=== PATIENT | male | born 1960 | race Caucasian/White ===

== ENCOUNTER → 2018-09-10 | Outpatient (CLI) | payer BC | END | disposition home or self-care (01) | LOC: RAH 10:48 | PROVIDERS: ATTEND Internal Medicine | DX: M48.07 Spinal stenosis, lumbosacral region (principal); M51.36 Other intervertebral disc degeneration, lumbar region; M47.816 Spondylosis without myelopathy or radiculopathy, lumbar region; R60.0 Localized edema; M45.0 Ankylosing spondylitis of multiple sites in spine | CPT/HCPCS: 72148 ==

== ENCOUNTER → 2018-09-28 | Outpatient (CLI) | payer BC | END | disposition home or self-care (01) | LOC: RAH 12:32 | PROVIDERS: ATTEND Internal Medicine | DX: M54.5 Low back pain (principal) | CPT/HCPCS: 78306; A9503 ==

== ENCOUNTER → 2018-10-31 | Outpatient (CLI) | payer BC | END | disposition home or self-care (01) | LOC: RAH 09:10 | DX: S32.059A Unspecified fracture of fifth lumbar vertebra, initial encounter for closed fracture (principal); M48.061 Spinal stenosis, lumbar region without neurogenic claudication; M45.6 Ankylosing spondylitis lumbar region; M47.815 Spondylosis without myelopathy or radiculopathy, thoracolumbar region; K44.9 Diaphragmatic hernia without obstruction or gangrene; I70.90 Unspecified atherosclerosis; X58.XXXA Exposure to other specified factors, initial encounter; Y93.89 Activity, other specified; Y92.89 Other specified places as the place of occurrence of the external cause; Y99.8 Other external cause status | CPT/HCPCS: 71250; 74176 ==

== ENCOUNTER 2020-06-06 22:10 | Emergency (ER) | payer BC ==
[2020-06-06 22:48] LABS: BASOPHILS % (AUTO) 0.2 % (0.0-5.0); EOSINOPHILS % (AUTO) 1.3 % (0.0-8.0); HEMATOCRIT 37.7 % (42-54); LYMPHOCYTES % (AUTO) 21.1 % (21.0-51.0); MEAN CORPUSCULAR HEMOGLOBIN 29.4 pg (27.0-33.0); MEAN CORPUSCULAR HGB CONC 32.9 g/dL (32.0-36.0); MEAN CORPUSCULAR VOLUME 89.3 fL (79-99); MONOCYTES % (AUTO) 9.1 % (3.0-13.0); NEUTROPHILS % (AUTO) 67.9 % (40.0-77.0); PLATELET COUNT (AUTO) 342 K/uL (130-400); RED BLOOD CELL COUNT(AUTO) 4.22 MIL/uL (4.50-6.20); RED CELL DISTRIBUTION WIDTH 12.7 % (11.0-15.5); WHITE BLOOD COUNT (AUTO) 13.6 K/uL (4.8-10.8)
[2020-06-06 22:54] LABS: CREATININE 0.7 mg/dL (0.5-1.5); POTASSIUM 4.5 mmol/L (3.5-5.1)
[2020-06-06 22:58] LABS: BILIRUBIN,TOTAL 0.3 mg/dL (0.2-1.0); TOTAL PROTEIN, SERUM 7.1 g/dL (6.0-8.3)
[2020-06-06] MEDS ORDERED: LACTULOSE 20 GM/30 ML UDCUP ONE (23:49)
[2020-06-07 00:10] LABS: APPEARANCE,URINE Clear (CLEAR); BILIRUBIN,URINE Negative (NEGATIVE); COLOR,URINE Yellow (YELLOW); GLUCOSE, URINE (UA) Negative (NEGATIVE); KETONES,URINE Negative (NEGATIVE); LEUKOCYTE ESTERASE ,URINE Negative (NEGATIVE); NITRATE,URINE Negative (NEGATIVE); OCCULT BLOOD,URINE Negative (NEGATIVE); PROTEIN,URINE Negative (NEGATIVE)
[2020-06-07 01:05] LABS: BACTERIA,URINE None Seen /HPF (None Seen); RBC,URINE 0-1 /HPF (0-1); WBC,URINE 0-1 /HPF (0-1)
== END 2020-06-07 00:07 | disposition home or self-care (01) ==
LOC: EDH 22:10
DX: K59.00 Constipation, unspecified (principal); E11.9 Type 2 diabetes mellitus without complications; I10 Essential (primary) hypertension; F11.10 Opioid abuse, uncomplicated
CPT/HCPCS: 36415; 74176; 80053; 81001; 82550; 83690; 84484; 85025; 93005

== ENCOUNTER → 2020-11-03 | Outpatient (CLI) | payer OTHER, BC | END | disposition home or self-care (01) | LOC: OIH 14:44 | PROVIDERS: ATTEND Internal Medicine | DX: M19.031 Primary osteoarthritis, right wrist (principal); M19.032 Primary osteoarthritis, left wrist; M19.042 Primary osteoarthritis, left hand; M19.041 Primary osteoarthritis, right hand; M06.4 Inflammatory polyarthropathy; M19.072 Primary osteoarthritis, left ankle and foot; M19.071 Primary osteoarthritis, right ankle and foot | CPT/HCPCS: 73100; 73630 ==

== ENCOUNTER → 2020-12-10 | Outpatient (CLI) | payer OTHER, BC | END | disposition home or self-care (01) | LOC: OIH 12-09 14:20 | PROVIDERS: ATTEND Pain Medicine Interventional Pain Medicine | DX: M51.16 Intervertebral disc disorders with radiculopathy, lumbar region (principal); M43.8X6 Other specified deforming dorsopathies, lumbar region | CPT/HCPCS: 72100 ==

== ENCOUNTER 2020-12-15 09:45 | Day surgery (SDC) | payer OTHER, MEDICARE ==
[2020-12-15] VITALS (11 sets, daily range): BP systolic 101–128; BP diastolic 58–80
[~2020-12-15] VITALS: Ht 160 cm; Wt 122.5 kg
[2020-12-15] MEDS ORDERED: SODIUM CHLORIDE 0.9% 1000ML 1,000 ML IV ONE (11:37)
[2020-12-15] MEDS ORDERED: PROPOFOL 10 MG/ML 20ML VIAL IV ONE ×2 (12:31)
[2020-12-15] MEDS ORDERED: FENTANYL CITRATE PF 50 MCG/1 ML 2ML VIAL ONE (12:31)
== END 2020-12-15 14:00 | disposition home or self-care (01) ==
LOC: ENDO 09:45
PROVIDERS: ATTEND Internal Medicine Gastroenterology
DX: Z12.11 Encounter for screening for malignant neoplasm of colon (principal); K64.1 Second degree hemorrhoids; K57.30 Diverticulosis of large intestine without perforation or abscess without bleeding; I10 Essential (primary) hypertension; E78.5 Hyperlipidemia, unspecified; I25.10 Atherosclerotic heart disease of native coronary artery without angina pectoris; E11.40 Type 2 diabetes mellitus with diabetic neuropathy, unspecified; Z86.010 Personal history of colon polyps; Z79.899 Other long term (current) drug therapy
CPT/HCPCS: 82948; 87426; A4215; A4221; A4222; A4223; A4606; A4620; A4663; G0105; J2704 ×2; J3010; J7030; 45378

== ENCOUNTER 2021-01-22 07:16 | Inpatient (IN) | payer OTHER, MEDICARE ==
[2021-01-15 16:48] LABS: BASOPHILS % (AUTO) 0.3 % (0.0-5.0); EOSINOPHILS % (AUTO) 0.9 % (0.0-8.0); HEMATOCRIT 46.1 % (42-54); LYMPHOCYTES % (AUTO) 26.5 % (21.0-51.0); MEAN CORPUSCULAR HEMOGLOBIN 30.1 pg (27.0-33.0); MEAN CORPUSCULAR VOLUME 91.3 fL (79-99); MONOCYTES % (AUTO) 10.8 % (3.0-13.0); NEUTROPHILS % (AUTO) 61.2 % (40.0-77.0); PLATELET COUNT (AUTO) 221 K/uL (130-400); RED BLOOD CELL COUNT(AUTO) 5.05 MIL/uL (4.50-6.20); RED CELL DISTRIBUTION WIDTH 14.6 % (11.0-15.5); WHITE BLOOD COUNT (AUTO) 8.7 K/uL (4.8-10.8)
[2021-01-15 17:02] LABS: INR 1.08 (0.85-1.15); PROTHROMBIN TIME 11.7 SEC (9.6-11.6)
[2021-01-15 17:03] LABS: PARTIAL THROMBOPLASTIN TIME 25.9 SEC (26.3-35.5)
[2021-01-15 17:07] LABS: ALBUMIN 3.7 g/dL (3.5-5.0); BILIRUBIN,TOTAL 0.6 mg/dL (0.2-1.0); CREATININE 0.8 mg/dL (0.5-1.5); POTASSIUM 4.4 mmol/L (3.5-5.1); TOTAL PROTEIN, SERUM 7.5 g/dL (6.0-8.3)
[2021-01-21 13:11] VITALS: BP 126/72
[~2021-01-22] VITALS: Ht 160 cm; Wt 124.4 kg
[2021-01-22] VITALS (22 sets, daily range): BP systolic 101–125; BP diastolic 54–84
[~2021-01-22 07:16] MED LIST: AMLO-258 PO; ATEN100T PO; ATOR10 PO; CHLO500T3 PO; GABA600T10 PO; HYDR-4381 PO; HYDR12.54 PO; LOSA25TA41 PO; MELO-108 PO; METF-444 PO; METF-446 PO
[2021-01-22] MEDS ORDERED: LACTATED RINGERS 1000ML 1,000 ML IV ONE (08:46)
[2021-01-22] MEDS: CEFAZOLIN SODIUM 1 GM VIAL IVP SCH ×3 (09:45→18:58)
[2021-01-22] MEDS ORDERED: CEFAZOLIN SODIUM 1 GM VIAL ONE (10:05)
[2021-01-22] MEDS ORDERED: VANCOMYCIN HCL 1 GM VIAL ONE (10:05)
[2021-01-22] MEDS ORDERED: THROMBIN-JMI 20000 UNIT KIT TP ONE (10:06)
[2021-01-22] MEDS ORDERED: TRIAMCINOLONE ACETONIDE 40 MG/ML 1ML VIAL ONE (10:06)
[2021-01-22] MEDS ORDERED: TRANEXAMIC ACID 1000MG/10ML ONE (10:06)
[2021-01-22] MEDS ORDERED: KETOROLAC TROMETHAMINE 60 MG/2 ML VIAL ONE (10:08)
[2021-01-22] MEDS ORDERED: HYDROMORPHONE 1 MG/1 ML AMP ONE (10:09)
[2021-01-22] MEDS ORDERED: TOBRAMYCIN SULFATE 40MG/1ML VIAL ONE (10:10)
[2021-01-22] MEDS ORDERED: SUCCINYLCHOLINE CHLORIDE 20 MG/ML 10 ML VIAL ONE (10:22)
[2021-01-22] MEDS ORDERED: LIDOCAINE HCL-MPF 1% 5ML AMP IJ ONE (10:22)
[2021-01-22] MEDS ORDERED: MIDAZOLAM HCL 1 MG/ML 2ML VIAL ONE (10:23)
[2021-01-22] MEDS ORDERED: FENTANYL CITRATE PF 50 MCG/1 ML 2ML VIAL ONE (10:23)
[2021-01-22] MEDS ORDERED: ROCURONIUM 10MG/1ML SYR 10 MG/ML ML ONE ×2 (10:23→11:18)
[2021-01-22] MEDS ORDERED: PROPOFOL 10 MG/ML 20ML VIAL IV ONE (10:23)
[2021-01-22] MEDS ORDERED: FENTANYL CITRATE PF 50 MCG/1 ML 5ML AMP IV ONE (10:53)
[2021-01-22] MEDS ORDERED: ROPIVACAINE 0.2% 2MG/ML 100ML VIAL IJ ONE (12:10)
[2021-01-22] MEDS ORDERED: GLYCOPYRROLATE 1 MG/5 ML SYRINGE ONE (12:55)
[2021-01-22] MEDS ORDERED: NEOSTIGMINE 5MG/5ML SYR IV ONE (12:55)
[2021-01-22] MEDS ORDERED: KETOROLAC TROMETHAMINE 30MG/ML ONE (13:01)
[2021-01-22] MEDS ORDERED: MORPHINE SULFATE 2 MG/ML 1ML SYG ONE (13:30)
[2021-01-22] MEDS ORDERED: MEPERIDINE-PF 25 MG/ML SYG ONE ×2 (13:51→18:09)
[2021-01-22] MEDS ORDERED: DEXTROSE 50%-WATER 50 ML DISP.SYRIN IV PRN (16:30)
[2021-01-22] MEDS ORDERED: GLUCAGON 1MG KIT 1 MG ML IM PRN (16:30)
[2021-01-22] MEDS: INSULIN HUMULIN R 100 UNIT/ML 3ML SQ SCH ×2 (16:30→20:51)
[2021-01-22] MEDS ORDERED: ONDANSETRON HCL 4 MG/2 ML VIAL IVP PRN (17:30)
[2021-01-22] MEDS ORDERED: ACETAMINOPHEN-CODEINE 300/30MG TAB PO PRN ×2 (18:00)
[2021-01-22] MEDS ORDERED: MEPERIDINE-PF 50 MG/ML SYG ONE (18:07)
[2021-01-22] MEDS: METFORMIN HCL 500 MG TABLET PO SCH (20:45)
[2021-01-22] MEDS: ATENOLOL 50 MG TABLET PO SCH (20:45)
[2021-01-22] MEDS: GABAPENTIN 300 MG CAPSULE PO SCH (20:45)
[2021-01-22] MEDS: ATORVASTATIN CALCIUM 20 MG TABLET PO SCH (20:45)
[2021-01-22] MEDS: CHLORZOXAZONE 500 MG PO SCH (20:46)
[2021-01-22] MEDS: HYDROCODONE/ACETAMINOPHEN 10/325 MG TAB PO PRN (20:46)
[2021-01-23] MEDS: HYDROCODONE/ACETAMINOPHEN 10/325 MG TAB PO PRN ×2 (01:20→08:39)
[2021-01-23] MEDS ORDERED: MEPERIDINE-PF 25 MG/ML SYG ONE (03:19)
[2021-01-23] MEDS ORDERED: MEPERIDINE-PF 50 MG/ML SYG ONE (03:19)
[2021-01-23] MEDS: CEFAZOLIN SODIUM 1 GM VIAL IVP SCH ×2 (03:26→12:48)
[2021-01-23] MEDS: MEPERIDINE-PF 75 MG/ML SYG IM PRN ×3 (03:27→20:45)
[2021-01-23 04:00] VITALS: BP 118/74
[2021-01-23] MEDS: INSULIN HUMULIN R 100 UNIT/ML 3ML SQ SCH ×4 (06:10→20:45)
[2021-01-23 08:33] VITALS: BP 127/73
[2021-01-23] MEDS: LOSARTAN 25 MG TABLET PO SCH (08:39)
[2021-01-23] MEDS: HYDROCHLOROTHIAZIDE 25 MG TABLET PO SCH (08:39)
[2021-01-23] MEDS: AMLODIPINE BESYLATE 5 MG TAB PO SCH (08:39)
[2021-01-23] MEDS: ATENOLOL 50 MG TABLET PO SCH ×2 (08:39→20:35)
[2021-01-23] MEDS: METFORMIN HCL 500 MG TABLET PO SCH ×2 (08:40→20:34)
[2021-01-23] MEDS: GABAPENTIN 300 MG CAPSULE PO SCH ×2 (08:40→20:34)
[2021-01-23] MEDS: MELOXICAM 7.5 MG TABLET PO SCH (09:00)
[2021-01-23] MEDS: CHLORZOXAZONE 500 MG PO SCH ×2 (09:00→20:46)
[2021-01-23 12:24] VITALS: BP 105/57
[2021-01-23 16:35] VITALS: BP 98/67
[2021-01-23 20:20] VITALS: BP 112/60
[2021-01-23] MEDS: ATORVASTATIN CALCIUM 20 MG TABLET PO SCH (20:34)
[2021-01-24 00:18] VITALS: BP 118/74
[2021-01-24] MEDS: HYDROCODONE/ACETAMINOPHEN 10/325 MG TAB PO PRN (03:54)
[2021-01-24 04:17] VITALS: BP 137/74
[2021-01-24] MEDS: INSULIN HUMULIN R 100 UNIT/ML 3ML SQ SCH ×3 (06:49→16:30)
[2021-01-24] MEDS: MELOXICAM 7.5 MG TABLET PO SCH (07:56)
[2021-01-24] MEDS: LOSARTAN 25 MG TABLET PO SCH (07:57)
[2021-01-24] MEDS: GABAPENTIN 300 MG CAPSULE PO SCH (07:57)
[2021-01-24] MEDS: METFORMIN HCL 500 MG TABLET PO SCH (07:57)
[2021-01-24] MEDS: HYDROCHLOROTHIAZIDE 25 MG TABLET PO SCH (07:57)
[2021-01-24] MEDS: ATENOLOL 50 MG TABLET PO SCH (07:58)
[2021-01-24] MEDS: AMLODIPINE BESYLATE 5 MG TAB PO SCH (07:58)
[2021-01-24] MEDS: MEPERIDINE-PF 75 MG/ML SYG IM PRN ×2 (07:59→16:56)
[2021-01-24] MEDS: CHLORZOXAZONE 500 MG PO SCH (07:59)
[2021-01-24 08:29] VITALS: BP 118/88
[2021-01-24 12:17] VITALS: BP 105/61
[2021-01-24 16:56] VITALS: BP 112/66
== END 2021-01-24 18:37 | disposition home or self-care (01) | DRG 517 ==
LOC: DAH 07:16 → 4DH 07:17 → DAH 07:17 → EDSTATUS 16:00 → 4BH 21:19
PROVIDERS: ADMIT Neurological Surgery; ATTEND Neurological Surgery
PROC: 01NB0ZZ Release Lumbar Nerve, Open Approach (ICD-10-PCS; principal; 2021-01-23)
PROC: 01NR0ZZ Release Sacral Nerve, Open Approach (ICD-10-PCS; 2021-01-23)
DX: M48.062 Spinal stenosis, lumbar region with neurogenic claudication (principal); M54.10 Radiculopathy, site unspecified; Z20.822 Contact with and (suspected) exposure to COVID-19
CPT/HCPCS: 36415; 71046; 72100; 80053; 82948; 85025; 85610; 85730; 93005; C9803; G0378; J0330; J0690; J1170; J1815; J1885; J2175; J2250; J2704; J2710; J2795; J3010; J3260; J3301; J3370; J3490; J7030; J7120; U0003

== ENCOUNTER 2023-04-15 21:27 | Emergency (ER) | payer OTHER, MEDICARE ==
[~2023-04-15] VITALS: Ht 160 cm; Wt 102.1 kg
[2023-04-15 22:29] LABS: BASOPHILS # (AUTO) 0.04 K/uL (0.00-0.20); BASOPHILS % (AUTO) 0.4 % (0.0-5.0); EOSINOPHILS # (AUTO) 0.07 K/uL (0.00-0.70); EOSINOPHILS % (AUTO) 0.6 % (0.0-8.0); HEMATOCRIT 54.8 % (42-54); IMMATURE GRANULOCYTE ABSOLUTE 0.04 K/uL (0-1); LYMPHOCYTES # (AUTO) 2.5 K/uL (1.0-4.8); LYMPHOCYTES % (AUTO) 22.7 % (21.0-51.0); MEAN CORPUSCULAR HEMOGLOBIN 32.9 pg (27.0-33.0); MEAN CORPUSCULAR HGB CONC 34.7 g/dL (32.0-36.0); MONOCYTES # (AUTO) 1.2 K/uL (0.1-1.0); MONOCYTES % (AUTO) 11.4 % (3.0-13.0); NEUTROPHILS % (AUTO) 64.5 % (40.0-77.0); PLATELET COUNT (AUTO) 232 K/uL (130-400); RED BLOOD CELL COUNT(AUTO) 5.77 MIL/uL (4.50-6.20); RED CELL DISTRIBUTION WIDTH 12.6 % (11.0-15.5); WHITE BLOOD COUNT (AUTO) 10.9 K/uL (4.8-10.8)
[2023-04-15 22:40] LABS: CREATININE 0.9 mg/dL (0.5-1.5); POTASSIUM 4.1 mmol/L (3.5-5.1)
[2023-04-15 22:45] LABS: ALBUMIN 3.6 g/dL (3.5-5.0); BILIRUBIN,TOTAL 0.9 mg/dL (0.2-1.0); TOTAL PROTEIN, SERUM 6.9 g/dL (6.0-8.3)
[2023-04-15 23:38] LABS: RAPID GROUP A STREP negative (NEGATIVE)
[2023-04-15 23:44] LABS: SARS-CoV-2, RNA, NAAT NEGATIVE SARS CoV-2 (NEGATIVE)
[2023-04-15 23:48] LABS: INFLUENZA TYPE A Negative For Type A (NEGATIVE); INFLUENZA TYPE B Negative For Type B (NEGATIVE)
[2023-04-15 23:51] VITALS: BP 134/83; PULSE 89; RESP 16; O2SAT 97
== END 2023-04-15 23:56 | disposition home or self-care (01) ==
LOC: EDH 21:27
DX: I48.91 Unspecified atrial fibrillation (principal); M19.90 Unspecified osteoarthritis, unspecified site; Z20.822 Contact with and (suspected) exposure to COVID-19
CPT/HCPCS: 99284; 87635; 84484; 80053; 85025; 87880; 87804 ×2; 36415; 93005; C9803

== ENCOUNTER 2025-06-01 12:23 | Emergency (ER) | payer OTHER, MEDICARE ==
[~2025-06-01] VITALS: Ht 160 cm; Wt 99.8 kg
[~2025-06-01 12:23] MED LIST changes: +GABA-1405 PO; -GABA600T10 PO
[2025-06-01 12:54] LABS: IMMATURE GRANULOCYTE ABSOLUTE 0.06 K/uL (0-1); NUCLEATED RED BLOOD CELLS 0.0 % (0.0-0.19); PLATELET COUNT (AUTO) 284 K/uL (130-400); RED BLOOD CELL COUNT(AUTO) 5.50 MIL/uL (4.50-6.20); RED CELL DISTRIBUTION WIDTH 14.5 % (11.0-15.5); WHITE BLOOD COUNT (AUTO) 9.7 K/uL (4.8-10.8)
[2025-06-01 13:02] LABS: APPEARANCE,URINE CLEAR (CLEAR); GLUCOSE, URINE (UA) NEGATIVE (NEGATIVE); LEUKOCYTE ESTERASE ,URINE NEGATIVE Leu/uL (NEGATIVE); NITRATE,URINE NEGATIVE (NEGATIVE); OCCULT BLOOD,URINE NEGATIVE (NEGATIVE)
[2025-06-01 13:04] LABS: CREATININE 0.7 mg/dL (0.5-1.3); GLOMERULAR FILTR. RATE CALC 104.0 mL/min (>90); GLUCOSE,RANDOM 104.0 mg/dL (70-105); SODIUM SERUM 138.0 mmol/L (136-145); UREA NITROGEN, BLOOD 12.0 mg/dL (7-18)
[2025-06-01 13:07] LABS: ADD UA MICROSCOPIC YES
[2025-06-01 13:08] LABS: SQUAMOUS EPITHELIAL CELL,UR RARE /HPF (0-2)
--- NOTE | 2025-06-01 13:45 | ERN ---
General Chief Complaint: Abscess Stated Complaint: ABSCESS Time Seen by MD: 12:29 Source: patient History of Present Illness Initial Comments Patient is a 65-year-old male coming in complaining left lower extremity abscess. Per patient he has had this for three days he believes it is getting worse. He has had no fever no chills no nausea no vomiting. Allergies: Coded Allergies: No Known Drug Allergies (Verified Allergy, Unknown, 01/21/21) Home Meds Reported Medications Metformin HCl (Metformin HCl) 500 Mg Tablet, 500 MG PO HS, TAB 01/21/21 Metformin HCl (Metformin HCl) 1,000 Mg Tablet, 1000 MG PO DAILY, TAB 01/21/21 Atorvastatin Calcium (LIPITOR) 20 Mg Tab, 20 MG PO HS, TAB 01/21/21 Gabapentin (Gabapentin) 600 Mg Tablet, 600 MG PO BID, TAB 01/21/21 Chlorzoxazone (Chlorzoxazone) 500 Mg Tablet, 500 MG PO BID, TAB 01/21/21 Hydrocodone/Acetaminophen (Hydrocodone-Acetamin 10-300 mg) 1 Each Tablet, 1 EACH PO BID PRN for PAIN LEVEL 5 TO 10, TAB 01/21/21 Atenolol (Atenolol) 100 Mg Tablet, 100 MG PO BID, TAB 01/21/21 Losartan Potassium (Losartan Potassium) 25 Mg Tablet, 25 MG PO DAILY, TAB 01/21/21 Amlodipine Besylate (Amlodipine Besylate) 10 Mg Tablet, 10 MG PO DAILY, TAB 01/21/21 Hydrochlorothiazide (Hydrochlorothiazide) 12.5 Mg Tablet, 12.5 MG PO DAILY, TAB 01/21/21 Meloxicam (Meloxicam) 15 Mg Tablet, 15 MG PO DAILY, TAB 01/21/21 Past Medical History Past Medical History: A-Fib, Arthritis, Other Medical History Other: ANKYLOSING SPONDYLITIS Past Surgical History: None ROS Dictation CONSTITUTIONAL: No chills, no fever, no weakness, no diaphoresis, no malaise. HEAD/FACE: No signs of trauma. EENT: No eye pain, no blurred vision, no tearing, no double vision, no ear pain, no ear discharge, no nose pain, no nasal congestion, no throat pain, no throat swelling, no mouth pain. RESPIRATORY: No cough, no orthopnea, no SOB, no stridor, no wheezing. CARDIOVASCULAR: No chest pain, no edema, no palpitations, no syncope. GASTROINTESTINAL/ABDOMINAL: No abdominal pain, no constipation, no diarrhea, no nausea, no vomiting. GENITOURINARY: No abnormal discharge, no dysuria, no frequent urination, no hematuria. No complaints of pain in the genitals. MUSCULOSKELETAL: No back pain, no gout, no joint pain, no joint swelling, no muscle pain, no muscle stiffness, no neck pain. INTEGUMENTARY: No change in color, no change in hair/nails, no dryness, lesion, no lumps, no rash. NEUROLOGICAL/PSYCH: No anxiety, not depressed, no emotional problem, no headache, no numbness, no pre-existing deficit, no history of seizures, no tremors, no weakness. HEMATOLOGIC/LYMPHATIC: Not anemic, no history of blood clots, no apparent bleeding, no bruising, glands not swollen. All Systems Negative, Except as Noted. Physical Exam Physical Exam Dictation VITAL SIGNS: Reviewed. GENERAL APPEARANCE: Alert, oriented x3, no acute distress, obese. HEAD AND FACE: Non-traumatic. EYES: PERRL, pink conjunctivas, eyelid no trauma, anterior chamber clear. EARS: Pinnas intact and no signs of trauma or erythema. Ear canals clear and no discharge. TMs no erythema. NOSE: No discharge, no bleeding. OROPHARYNX: Mouth normal, teeth no caries, tongue pink. Pharynx clear, no erythema. Tonsils no exudates, no abscesses noted. Mucous membrane moist. NECK: Supple, non-tender, no thyromegaly, no masses, no JVD, no bruits. BREAST: Deferred. CHEST: No tenderness, no crepitus, no paradoxical movement, no retractions. LUNGS: Clear, well-ventilated, symmetric, no rales, no wheezing, no rhonchi, no stridor, good breath sounds bilaterally. HEART: Regular rate, regular rhythm, no murmur, no gallops. VASCULAR: No peripheral edema. ABDOMEN: Soft, positive bowel sounds, nondistended, no guarding, nontender, no rebound, no masses no hepatomegaly, no splenomegaly, no Epsinoza's sign, no hernias. RECTAL: Deferred. GENITAL: Deferred. NEUROLOGICAL: Normal speech, gross motor function intact, gross sensory function intact. MUSCULOSKELETAL: Neck nontender, full range of motion, back nontender, full range of motion. EXTREMITIES: Nontender, full range of motion. Lower left rash/lesion/abscess SKIN: Color pink, dry, no turgor, no rash, no lacerations, no abrasions, no contusions. LYMPHATICS: Deferred. Results Laboratory and Microbiology Lab and Micro Result Laboratory Tests Test 06/01/25 12:44 06/01/25 12:48 Urine Color YELLOW (YELLOW) Urine Appearance CLEAR (CLEAR) Urine pH 6.5 (5.0-8.0) Urine Specific [place] 1.015 (1.001-1.031) Urine Protein 20 mg/dL (NEGATIVE) H Urine Glucose (UA) NEGATIVE mg/dL (NEGATIVE) Urine Ketones NEGATIVE mg/dL (NEGATIVE) Urine Occult Blood NEGATIVE (NEGATIVE) Urine Nitrate NEGATIVE (NEGATIVE) Urine Bilirubin NEGATIVE mg/dL (NEGATIVE) Urine Urobilinogen 0.2 mg/dL (0.2-1.0) Urine Leukocyte Esterase NEGATIVE Steffi/uL Urine RBC 2-5 /HPF (0-1) H Urine WBC 0-1 /HPF (0-1) Urine Squamous Epithelial Cells RARE /HPF (0-2) Urine Bacteria None /HPF (None Seen) White Blood Count 9.7 K/uL (4.8-10.8) Red Blood Count 5.50 MIL/uL (4.50-6.20) Hemoglobin 17.4 g/dL (14.0-18.0) Hematocrit 51.3 % (42-54) Mean Corpuscular Volume 93.3 fL (79-99) Mean Corpuscular Hemoglobin 31.6 pg (27.0-33.0) Mean Corpuscular Hemoglobin Concent 33.9 g/dL (32.0-36.0) Red Cell Distribution Width 14.5 % (11.0-15.5) Platelet Count 284 K/uL (130-400) Mean Platelet Volume 10.8 fL (7.5-10.5) H Immature Granulocyte % (Auto) 0.6 % (0-1) Neutrophils (%) (Auto) 68.0 % (40.0-77.0) Lymphocytes (%) (Auto) 19.4 % (21.0-51.0) L Monocytes (%) (Auto) 10.8 % (3.0-13.0) Eosinophils (%) (Auto) 0.8 % (0.0-8.0) Basophils (%) (Auto) 0.4 % (0.0-5.0) Neutrophils # (Auto) 6.6 K/uL (1.8-7.7) Lymphocytes # (Auto) 1.9 K/uL (1.0-4.8) Monocytes # (Auto) 1.0 K/uL (0.1-1.0) Eosinophils # (Auto) 0.08 K/uL (0.00-0.70) Basophils # (Auto) 0.04 K/uL (0.00-0.20) Absolute Immature Granulocyte (auto 0.06 K/uL (0-1) Nucleated Red Blood Cells 0.0 % (0.0-0.19) Sodium Level 138 mmol/L (136-145) Potassium Level 4.3 mmol/L (3.5-5.1) Chloride Level 99 mmol/L (101-111) L Carbon Dioxide Level 32 mmol/L (21-32) Blood Urea Nitrogen 12 mg/dL (7-18) Creatinine 0.7 mg/dL (0.5-1.3) Glomerular Filtration Rate Calc 104 mL/min (>90) Random Glucose 104 mg/dL (70-105) Total Calcium 9.1 mg/dL (8.5-10.1) Labs Reviewed?: Yes EKG/XRAY/US/CT/MRI Ultrasound Comment us lower extremity-cellulitis MDM MDM: Differential diagnosis: Lower extremity lesion, abscess, cellulitis, insect bite Rationale: Tests considered and ordered secondary to shared decision making include: Previous outside records reviewed: Old ER visits. Risk of complication and/or morbidity or mortality of patient management: None Medications-Per medication reconciliation Need for hospitalization: Patient does not meet criteria for hospitalization. Need for emergency major/minor surgery: No Patient is a 65-year-old male coming in complaining of lower extremity wound. Per patient he felt the wound three days ago believes he was bit by an insect. That has had no fever no chills. Patient had ultrasound performed did not disclose abscess formation. Patient will be discharged with antibiotics. Did advised him appropriate follow up with PCP for long-term management. ED Course Orders Procedure Category Date Status Time Cbc With Differential LAB 06/01/25 Complete 12:41 Urinalysis Profile LAB 06/01/25 Complete 12:41 Basic Metabolic Panel LAB 06/01/25 Complete 12:41 Tetanus,Diphtheria PHA 06/01/25 Complete Tox [Adult] (Diphther 13:00 Us Soft Tissue Lower US 06/01/25 Taken Extremity 12:43 Current Medications Medications (Trade) Dose Ordered Sig/Rodríguez Route PRN Reason Start Time Stop Time Status Last Admin Dose Admin Tetanus/ Diphtheria Toxoids Adsorbed (DiphthERIA-teTANUS TOXOID [ADULT]/ DECAVAC) 0.5 ml ONCE ONCE IM 06/01/25 13:00 06/01/25 13:01 DC 06/01/25 12:50 Vital Signs Date Time Temp Pulse Resp B/P (MAP) Pulse Ox O2 Delivery O2 Flow Rate FiO2 06/01/25 12:40 97.5 74 16 141/89 97 Room Air* 0 21 06/01/25 12:24 97.5 74 16 141/89 97 Room Air DX & DISP Disposition: Discharge Departure Impression: Primary Impression: Lower extremity cellulitis Additional Impression: Insect bite Condition: Stable Scripts Cephalexin Monohydrate (Keflex) 500 Mg Cap 1 CAP PO TID for 10 Days, #30 CAP 0 Refills Prov: ALKA DELA CRUZ MD 06/01/25 Additional Instructions: FOLLOW-UP WITH PRIMARY CARE PROVIDER IN 1 TO 2 DAYS. TAKE MEDICATIONS DIRECTED HERE IN THE EMERGENCY ROOM. OKAY TO CONTINUE HOME MEDICATIONS UNLESS OTHERWISE DISCUSSED DURING YOUR VISIT IN THE EMERGENCY ROOM TODAY. RETURN TO YOUR NEAREST EMERGENCY ROOM IF SYMPTOMS WORSEN OR IF THERE IS NO IMPROVEMENT. CALL 911 IF YOU NEED IMMEDIATE ASSISTANCE. TAKE TYLENOL [id number] NEEDED AND IF NO CONTRAINDICATIONS ARE PRESENT. INCREASE ORAL HYDRATION. A WOUND CULTURE OR URINE CULTURE WAS ORDERED HERE IN THE EMERGENCY ROOM DEPARTMENT PLEASE FOLLOW-UP WITH PRIMARY CARE PROVIDER AND ADVISE THEM TO GET REPORTS FROM OUR FACILITY. IF YOU HAD ANY MECHELLE WRAP/SPLINTS THAT WERE APPLIED HERE, PLEASE DO NOT REMOVE THEM UNTIL YOU SEE YOUR PRIMARY CARE OR SPECIALTY. Referrals: Referrals: JENNY LEBLANC (PCP) Time of Disposition: 14:18 ALKA DELA CRUZ MD Jun 01, 2025 13:45
[2025-06-01] MEDS ORDERED: CEPH500B PO (14:19)
[2025-06-01 16:05] VITALS: BP 137/81; PULSE 71; RESP 16; TEMP 97.5; O2SAT 97
--- NOTE | 2025-06-02 00:31 | HMCIMG ---
EXAMINATION: SOFT TISSUE ULTRASOUND OF THE ABOVE LEFT KNEE. CLINICAL HISTORY: Left lower extremity wound. COMPARISON: None. TECHNIQUE: Transverse and longitudinal images were obtained. FINDINGS: There are no focal lesions or collections. There is subcutaneous edema in the above knee region. IMPRESSION: Subcutaneous edema in the above knee region. /[place]
== END 2025-06-01 16:05 | disposition home or self-care (01) ==
LOC: EDH 12:23
DX: L03.116 Cellulitis of left lower limb (principal); I48.91 Unspecified atrial fibrillation; M19.90 Unspecified osteoarthritis, unspecified site; M79.662 Pain in left lower leg; Z79.1 Long term (current) use of non-steroidal anti-inflammatories (NSAID); Z79.84 Long term (current) use of oral hypoglycemic drugs; Z79.899 Other long term (current) drug therapy; W57.XXXA Bitten or stung by nonvenomous insect and other nonvenomous arthropods, initial encounter
CPT/HCPCS: 36415; 76882; 80048; 81001; 85025; 90471; 90714; 99285